=== PATIENT | female | born 1975 | race Two or more races ===

== ENCOUNTER 2016-08-05 15:11 | Inpatient (IN) | payer MEDICAID ==
[~2016-08-05] VITALS: Ht 162.6 cm; Wt 58.5 kg
--- NOTE | 2016-08-05 15:14 | NUR ---
[id number] FROM HOME: ANXIETY, CHEST PAIN, SOB. ONGOING SINCE TUESDAY. PLACED ON MONITOR. VSS. AWAITING MD ORDER
--- NOTE | 2016-08-05 15:15 | NUR ---
PT HAS LFA #16 IV ACCESS.
--- NOTE | 2016-08-05 15:45 | NUR ---
DIRECTOR OF PHYSICAL THERAPY AT BEDSIDE
[2016-08-05] MEDS ORDERED: LORAZEPAM 1 MG TABLET PO ONE (16:00)
--- NOTE | 2016-08-05 16:00 | NUR ---
REPAIR TECH AT BEDSIDE BLOOD SAMPLE COLLECTED
[2016-08-05] MEDS ORDERED: LORAZEPAM 1 MG TABLET ONE (16:01)
[2016-08-05 16:11] LABS: BASOPHILS % (AUTO) 0.3 % (0.0-2.0); EOSINOPHILS # (AUTO) 0.1 /CMM (0.0-0.7); EOSINOPHILS % (AUTO) 0.7 % (0.0-6.0); HEMATOCRIT 34 % (33-45); HEMOGLOBIN 11.3 g/dL (11.5-14.8); LYMPHOCYTES % (AUTO) 24.8 % (20.0-44.0); MEAN CORPUSCULAR HEMOGLOBIN 28 PG (26.0-33.0); MEAN CORPUSCULAR HGB CONC 34 g/dl (31.0-36.0); MEAN CORPUSCULAR VOLUME 84 fL (82-100); MONOCYTES # (AUTO) 0.4 /CMM (0.1-1.30); MONOCYTES % (AUTO) 5.1 % (2.0-12.0); NEUTROPHILS # (AUTO) 5.7 /CMM (1.8-8.9); NEUTROPHILS % (AUTO) 69.1 % (43.0-81.0); PLATELET COUNT (AUTO) 279 /CMM (150-450); RDW COEFFICIENT OF VARIATION 11.7 (11.5-15.0); RED BLOOD CELL COUNT(AUTO) 3.99 MIL/uL (4.0-5.2); WHITE BLOOD COUNT (AUTO) 8.2 K/uL (4.3-11.0)
[2016-08-05 16:22] LABS: CALCIUM, SERUM 8.1 mg/dL (8.5-10.1); CARBON DIOXIDE 23 mmol/L (21-32); CHLORIDE 109 mmol/L (98-107); CREATININE 0.5 mg/dL (0.6-1.3); GLUCOSE 147 mg/dL (74-106); POTASSIUM 3.3 mmol/L (3.5-5.1); SODIUM SERUM 142 mmol/L (136-145); UREA NITROGEN, BLOOD 3 mg/dL (7-18)
[2016-08-05 16:27] LABS: INR 1.12 (0.87-1.13); PROTHROMBIN TIME 11.7 SECS (9.5-12.7)
[2016-08-05] MEDS ORDERED: FUROSEMIDE 20 MG/2 ML VIAL ONE (16:27)
[2016-08-05] MEDS ORDERED: FUROSEMIDE 20 MG/2 ML VIAL IV ONE (16:30)
[2016-08-05 16:31] LABS: TROPONIN I < 0.017 ng/mL (0.00-0.056)
--- NOTE | 2016-08-05 16:38 | NUR ---
CALLED NURSING SUP. FOR TELE BED
--- NOTE | 2016-08-05 17:24 | NUR ---
CALLED FOR FOOD TRAY
--- NOTE | 2016-08-05 17:42 | NUR ---
KOURTNEY PAGED, DR. WIGGINS JEWEL BEARING BROACHER
--- NOTE | 2016-08-05 18:08 | NUR ---
GAVE REPORT TO REMA ZARAGOZA ADMITTING MD DR FELICIANO MARCUS PULMONARY EDEMA. TELEMETRY TRANSFER VIA ACLS PROTOCOL
[2016-08-05] MEDS ORDERED: POTASSIUM CL. PREMIX PERIPHER. 50 ML IV SCH (18:30)
[2016-08-05] MEDS ORDERED: Z GUARD REMEDY 2 OZ OINT TP PRN (18:30)
[2016-08-05] MEDS ORDERED: MAG HYDROX/AL HYDROX/SIMETH 30 ML UDC PO PRN (18:30)
[2016-08-05] MEDS ORDERED: MAGNESIUM HYDROXIDE 30 ML UDC PO PRN (18:30)
[2016-08-05 20:00] VITALS: BP 140/98
[2016-08-05] MEDS ORDERED: POTASSIUM CHLORIDE 20 MEQ TAB.PRT.SR PO ONE (20:00)
--- NOTE | 2016-08-05 21:00 | NUR ---
RN NOTE; PT ON BED WITHOUT ANY DISTRESS , ALERT/ORIENTED , ABLE TO AMBULATE , DENIED ANY CHEST PAIN AT THIS TIME , SKIN ASSESSMENT DONE , BELONGING CHECKED . WILL CONTINUE TO MONITOR .
[2016-08-05] MEDS ORDERED: DEXTROSE 50%-WATER 50 ML DISP.SYRIN IV PRN (23:30)
[2016-08-06] VITALS: BP 143/101
[2016-08-06] MEDS: ZOLPIDEM TARTRATE 5 MG TABLET PO PRN (00:22)
[2016-08-06] MEDS: *INSULIN REGULAR(HUMULIN R)HUM 100 UNIT/ML VIAL SQ PRN ×2 (00:23→21:22)
[2016-08-06] MEDS: BLOOD SUGAR DIAGNOSTIC 1 EACH STRIP VI SCH ×5 (00:24→21:18)
[2016-08-06] MEDS ORDERED: ALBUTEROL FS 2.5 MG/0.5 ML VIAL.NEB NEB PRN (03:00)
[2016-08-06] MEDS ORDERED: IPRATROPIUM NEB FS 0.5 MG/2.5 ML AMPUL.NEB NEB PRN (03:00)
[2016-08-06 04:00] VITALS: BP 124/84
[2016-08-06] MEDS: INSULIN REGULAR, HUMAN 100 UNIT/ML 3 ML VIAL SQ PRN ×2 (06:28→11:31)
[2016-08-06 06:37] LABS: BASOPHILS % (AUTO) 0.3 % (0.0-2.0); EOSINOPHILS # (AUTO) 0.2 /CMM (0.0-0.7); EOSINOPHILS % (AUTO) 2.5 % (0.0-6.0); HEMATOCRIT 33 % (33-45); HEMOGLOBIN 10.9 g/dL (11.5-14.8); LYMPHOCYTES # (AUTO) 2.3 /CMM (0.8-4.8); LYMPHOCYTES % (AUTO) 28.3 % (20.0-44.0); MEAN CORPUSCULAR HEMOGLOBIN 28 PG (26.0-33.0); MEAN CORPUSCULAR HGB CONC 33 g/dl (31.0-36.0); MEAN CORPUSCULAR VOLUME 83 fL (82-100); MONOCYTES # (AUTO) 0.5 /CMM (0.1-1.30); MONOCYTES % (AUTO) 5.6 % (2.0-12.0); NEUTROPHILS # (AUTO) 5.1 /CMM (1.8-8.9); NEUTROPHILS % (AUTO) 63.3 % (43.0-81.0); PLATELET COUNT (AUTO) 266 /CMM (150-450); RDW COEFFICIENT OF VARIATION 12.9 (11.5-15.0); RED BLOOD CELL COUNT(AUTO) 3.92 MIL/uL (4.0-5.2); WHITE BLOOD COUNT (AUTO) 8.1 K/uL (4.3-11.0)
--- NOTE | 2016-08-06 07:00 | NUR ---
RN NOTES RECEIVED PT ON BED, A/Ox3 AZERBAIJANI SPEAKING , RESPIRATION EVEN AND UNLABORED, ON O2 AT 2L N/C, ON TELE ST IN 100'S AT THIS TIME, R FA G 22 SITE CDI, SR UP x3, CALL LIGHT WITHIN EASY REACH , CONTINENT TO MONITOR PT CLOSELY AND NOTIFY MD FOR ANY SIGNIFICANT CHANGES .
[2016-08-06 07:01] LABS: CALCIUM, SERUM 8.5 mg/dL (8.5-10.1); CREATININE 0.7 mg/dL (0.6-1.3); MAGNESIUM 1.7 mg/dL (1.8-2.4); PHOSPHORUS 2.8 mg/dL (2.5-4.9); POTASSIUM 3.6 mmol/L (3.5-5.1)
--- NOTE | 2016-08-06 07:01 | NUR ---
RN EOS NOTE; NO NAY DISTRESS DURING THE SHIFT, PRN AMBIEN 5 MG PO GIVEN FOR INSOMNIA . TOLERATED WELL . ASSISTED NEEDED , ALL NEEDS ATTENDED PROMPTLY. ENDORSED TO NEXT SHIFT RN FOR CONTINUITY OF CARE.
[2016-08-06 08:00] VITALS: BP 143/90
[2016-08-06] MEDS ORDERED: FUROSEMIDE 40 MG/4 ML VIAL IV SCH (09:00)
[2016-08-06] MEDS ORDERED: IV SET PRIMARY PUMP SET 1 EA INFUS.SET MC ONE (11:26)
[2016-08-06] MEDS: Magnesium 1GM/D5W 100ML PREMIX 100 ML IV SCH ×2 (11:30→12:35)
[2016-08-06 12:00] VITALS: BP 124/93
--- NOTE | 2016-08-06 12:00 | NUR ---
RN NOTES PT STABLE , NO DISTRESS NOTED , CONTINUE TO MONITOR .
[2016-08-06] MEDS ORDERED: Magnesium 1GM/D5W 100ML PREMIX 100 ML IV SCH (12:30)
[2016-08-06] MEDS: ASPIRIN 81 MG TAB.CHEW PO SCH (12:35)
[2016-08-06 16:00] VITALS: BP 122/89
[2016-08-06] MEDS: FUROSEMIDE 40 MG/4 ML VIAL IV SCH (16:43)
[2016-08-06] MEDS: ACETAMINOPHEN 325 MG TABLET PO PRN (16:43)
--- NOTE | 2016-08-06 18:48 | NUR ---
RN NOTES PT STABLE , OOB TO BR WITHOUT ASSIST . MEDICATED PER MD ORDER , R FA #22 IV SITE CDI, NO SIGNIFICANT CHANGES NOTED ON THIS SHIFT
--- NOTE | 2016-08-06 19:30 | NUR ---
CHEMICAL TREATMENT PLANT TECHNICIAN INITIAL NOTE RECEIVED REPORT FROM REBECA ZARAGOZA. PT IS A/A/O X4. PT IS SITTING UP AT THE SIDE OF BED. AMBULATORY WITH BRP. ABLE TP VERBALIZE NEEDS. PT IS STATING SOME RIB PAIN, SAYS IT HAPPENS WHEN SHE COUGHS. BED IN LOW LOCKED POSITION. CALL LIGHT WITHIN REACH. WILL CONTINUE TO MONITOR.
[2016-08-06 20:00] VITALS: BP 100/66
[2016-08-06] MEDS: ATORVASTATIN 40 MG TABLET PO SCH (21:17)
[2016-08-06] MEDS: HYDROCODONE/APAP 5/325MG 1 EACH TABLET PO PRN (21:18)
[2016-08-07] VITALS: BP 102/69
[2016-08-07] MEDS: ACETAMINOPHEN 325 MG TABLET PO PRN
[2016-08-07 04:00] VITALS: BP 105/73
[2016-08-07] MEDS: HYDROCODONE/APAP 5/325MG 1 EACH TABLET PO PRN (06:06)
--- NOTE | 2016-08-07 07:30 | NUR ---
FAST FOOD ATTENDANT INITIAL NOTE RECEIVED pt in bed.PT IS A/A/O X4. PT IS SITTING UP AT THE SIDE OF BED. AMBULATORY WITH BRP. ABLE To VERBALIZE NEEDS. no c/o pain. BED IN LOW LOCKED POSITION. CALL LIGHT WITHIN REACH. WILL CONTINUE TO MONITOR.
[2016-08-07] MEDS: BLOOD SUGAR DIAGNOSTIC 1 EACH STRIP VI SCH ×4 (07:52→21:06)
[2016-08-07 08:00] VITALS: BP 132/89
[2016-08-07] MEDS: FUROSEMIDE 40 MG/4 ML VIAL IV SCH ×2 (08:05→17:11)
[2016-08-07] MEDS: ASPIRIN 81 MG TAB.CHEW PO SCH (08:05)
[2016-08-07] MEDS: INSULIN REGULAR, HUMAN 100 UNIT/ML 3 ML VIAL SQ PRN ×2 (08:10→17:16)
[2016-08-07] MEDS: ONDANSETRON HCL/PF 4 MG/2 ML VIAL IVP PRN (08:49)
[2016-08-07] MEDS: METOCLOPRAMIDE HCL 10 MG/2 ML VIAL IV PRN ×2 (11:39→21:01)
[2016-08-07 12:00] VITALS: BP_SYST 119; BP_SYST 90; BP_DIAS 43; BP_DIAS 80
[2016-08-07 12:26] LABS: CREATININE 0.6 mg/dL (0.6-1.3)
[2016-08-07] MEDS ORDERED: IV SET PRIMARY PUMP SET 1 EA INFUS.SET MC ONE (14:34)
[2016-08-07] MEDS: HEPARIN INFUSION/D5W 500 ML IV PRN (14:42)
[2016-08-07] MEDS: FAMOTIDINE (20 MG) 20 MG TABLET PO SCH ×2 (14:49→21:06)
[2016-08-07 16:00] VITALS: BP 109/71
--- NOTE | 2016-08-07 19:30 | NUR ---
RN NOTES RECEIVED PT AWAKE ON BED,A/0X4, AMBULATORY, SR ON TELE MONITOR , HR 85, HEPARIN RUNNING @20ML/HR, DENIES PAIN , NO SOB, CONTINUE TO MONITOR
[2016-08-07 20:00] VITALS: BP 111/79
[2016-08-07] MEDS: ATORVASTATIN 40 MG TABLET PO SCH (21:06)
[2016-08-07] MEDS: *INSULIN REGULAR(HUMULIN R)HUM 100 UNIT/ML VIAL SQ PRN (21:15)
--- NOTE | 2016-08-07 21:19 | NUR ---
RN NOTES COMPLAINED OF FEELING NAUSEOUS- REGLAN 5MG IV GIVEN ORDERED, V/S STABLE
[2016-08-07] MEDS ORDERED: HEPARIN SODIUM, PORCINE 5000 UNITS/1 ML VIAL ONE (22:35)
--- NOTE | 2016-08-07 22:35 | NUR ---
RN NOTES PT. PTT-32 HEPARIN 3600 WAS GIVEN AND INCREASED THE RATE TO 1200 PER HEPARIN PROTOCOL, WITNESSED BY TH CHARGE NURSE
[2016-08-07] MEDS: ZOLPIDEM TARTRATE 5 MG TABLET PO PRN ×2 (22:46)
[2016-08-07] MEDS ORDERED: HEPARIN SODIUM, PORCINE 5000 UNITS/1 ML VIAL IV ONE (23:00)
[2016-08-08] VITALS: BP 92/58
[2016-08-08 04:00] VITALS: BP 112/82
[2016-08-08 04:47] LABS: CREATININE 0.6 mg/dL (0.6-1.3); POTASSIUM 3.3 mmol/L (3.5-5.1)
[2016-08-08 04:58] LABS: INR 1.07 (0.87-1.13); PROTHROMBIN TIME 11.5 SECS (9.5-12.7)
--- NOTE | 2016-08-08 05:10 | NUR ---
RN NOTES PTT-46- NO CHANGE PER HEPARIN PROTOCOL
--- NOTE | 2016-08-08 06:29 | NUR ---
RN NOTES AWAKE, DENIES PAIN, NO SOB, MORNING CARE RENDERED, PT. NEEDS ATTENDED. ENDORSED TO DAYSHIFT NURSE FOR CONTINUITY OF CARE
--- NOTE | 2016-08-08 07:05 | NUR ---
MACHINE FEEDER INITIAL NOTE REPORT RECEIVED AT THE BEDSIDE. PATIENT IS RESTING COMFORTABLY IN BED. NO SOB OR DISTRESS NOTED AT THIS TIME. PATIENT DENIES PAIN. HEART RATE SR IN THE 80'S. HEPARIN DRIP SETTINGS CHECKED. BED IN A LOW POSITION, CALL LIGHT WITHIN PATIENT REACH. WILL CONTINUE TO MONITOR.
[2016-08-08 08:00] VITALS: BP 127/88
[2016-08-08] MEDS: FAMOTIDINE (20 MG) 20 MG TABLET PO SCH ×2 (08:20→21:53)
[2016-08-08] MEDS: ASPIRIN 81 MG TAB.CHEW PO SCH (08:20)
[2016-08-08] MEDS: FUROSEMIDE 40 MG/4 ML VIAL IV SCH (08:20)
[2016-08-08] MEDS: BLOOD SUGAR DIAGNOSTIC 1 EACH STRIP VI SCH ×4 (08:20→21:53)
[2016-08-08] MEDS: POTASSIUM CHLORIDE 20 MEQ POWDER PACKET GT SCH (10:23)
[2016-08-08] MEDS: INSULIN REGULAR, HUMAN 100 UNIT/ML 3 ML VIAL SQ PRN ×2 (12:08→17:23)
[2016-08-08] MEDS: HEPARIN INFUSION/D5W 500 ML IV PRN (12:08)
[2016-08-08] MEDS: HYDROCODONE/APAP 5/325MG 1 EACH TABLET PO PRN (13:51)
[2016-08-08] MEDS: ONDANSETRON HCL/PF 4 MG/2 ML VIAL IVP PRN (14:58)
[2016-08-08] MEDS: METOCLOPRAMIDE HCL 10 MG/2 ML VIAL IV PRN (15:21)
[2016-08-08 16:00] VITALS: BP 111/78
[2016-08-08] MEDS: FUROSEMIDE 40 MG TABLET PO SCH (17:22)
--- NOTE | 2016-08-08 18:49 | NUR ---
ICING AND GLAZE MAKER CLOSING NOTE NO SIGNIFICANT CHANGES IN PATIENT CONDITION THROUGHOUT THE SHIFT. NO SOB OR DISTRESS NOTED AT THIS TIME. PATIENT DENIES PAIN. HEART RATE IS SR AT 80. BED IN A LOW POSITION, CALL LIGHT WITHIN PATIENT REACH, WILL ENDORSE FOR KEILY.
--- NOTE | 2016-08-08 19:15 | NUR ---
RN NOTES RECEIVED PT AWAKE, SITTING IN BED, NOM SOB, NOT IN DISTRESS, ON ROOM AIR AND TOLERATED WELL. PT ALERT AND ORIENTED X4, PT VERBALIZING SLIGHT DIZZINESS AND FEELS NAUSEATED, ICE CHIPS OFFERED AND TOLERATED WELL. TELE MONITOR READS SINUS RHYTHM AT 89. IV ACCESS ON LEFT AC PATENT AND INTACT WITH ONGOING HEPARIN WITH SETTINGS IN PLACED. KEPT PT COMFORTABLE AND ATTENDED WITH CALL LIGHT WITH IN REACH. WILL CONTINUE TO MONITOR PT.
[2016-08-08 20:00] VITALS: BP 102/72
[2016-08-08] MEDS: ATORVASTATIN 40 MG TABLET PO SCH (21:53)
[2016-08-08] MEDS: *INSULIN REGULAR(HUMULIN R)HUM 100 UNIT/ML VIAL SQ PRN (21:55)
[2016-08-08] MEDS: ZOLPIDEM TARTRATE 5 MG TABLET PO PRN (23:06)
--- NOTE | 2016-08-08 23:06 | NUR ---
RN NOTES PT VERBALIZING DIFFICULTY IN SLEEPING AND REQUESTING FOR SLEEPING PILL. AMBIEN 5 MG TAB GIVEN PO. WILL CONTINUE TO MONITOR PT.
[2016-08-09] VITALS: BP 103/70
[2016-08-09 04:00] VITALS: BP 105/73
[2016-08-09] MEDS: BLOOD SUGAR DIAGNOSTIC 1 EACH STRIP VI SCH ×4 (06:55→22:04)
[2016-08-09] MEDS: INSULIN REGULAR, HUMAN 100 UNIT/ML 3 ML VIAL SQ PRN (06:57)
[2016-08-09 07:11] LABS: CREATININE 0.7 mg/dL (0.6-1.3); MAGNESIUM 1.9 mg/dL (1.8-2.4); PROTHROMBIN TIME 10.7 SECS (9.5-12.7)
--- NOTE | 2016-08-09 07:15 | NUR ---
RN INITIAL NOTE PT RECEIVED SITTING IN CHAIR. AWAKE, ALERT AND ORIENTED. ABLE TO MAKE NEEDS KNOWN. DENIES PAIN AT THIS TIME. RESPIRATIONS ARE EVEN AND UNLABORED. NO S/S OF RESPIRATORY DISTRESS OR SOB. ABLE TO AMBULATE. SINUS RHYTHM ON TELE MONITOR. LEFT FOREARM FLUSHED, PATENT. DRESSING C/D/I. SKIN IS WARM AND DRY TO TOUCH. SAFETY PRECAUTIONS IN PLACE. CALL LIGHT WITHIN EASY REACH. WILL CONTINUE TO MONITOR.
--- NOTE | 2016-08-09 07:23 | NUR ---
RN NOTES PT AWAKE, DENIES ANY PAIN AND DISCOMFORT AT THIS TIME. VITAL SIGNS STABLE, AFEBRILE. NO COMPLAIN OF PAIN. NO EPISODE OF NAUSEA AND VOMITING. NO SIGNS OF HYPOGLYCEMIA NOTED. ALL DUE MEDS GIVEN. ALL NEEDS MET. ENDORSED TO MORNING RN FOR CONTINUITY OF CARE.
[2016-08-09 08:00] VITALS: BP 151/83
[2016-08-09] MEDS ORDERED: HEPARIN SODIUM, PORCINE 5000 UNITS/1 ML VIAL IV ONE (08:00)
[2016-08-09] MEDS: FUROSEMIDE 40 MG TABLET PO SCH ×2 (08:07→18:17)
[2016-08-09] MEDS: POTASSIUM CHLORIDE 20 MEQ POWDER PACKET GT SCH (08:07)
[2016-08-09] MEDS: FAMOTIDINE (20 MG) 20 MG TABLET PO SCH ×2 (08:07→21:57)
[2016-08-09] MEDS: ASPIRIN 81 MG TAB.CHEW PO SCH (08:07)
[2016-08-09] MEDS: HEPARIN INFUSION/D5W 500 ML IV PRN (08:32)
[2016-08-09] MEDS: CARVEDILOL 3.125 MG TABLET PO SCH ×2 (09:31→21:00)
[2016-08-09] MEDS: *INSULIN REGULAR(HUMULIN R)HUM 100 UNIT/ML VIAL SQ PRN ×2 (11:12→18:18)
[2016-08-09 12:00] VITALS: BP 115/87
[2016-08-09] MEDS: HYDROCODONE/APAP 5/325MG 1 EACH TABLET PO PRN (14:35)
[2016-08-09 16:00] VITALS: BP 92/65
--- NOTE | 2016-08-09 16:50 | NUR ---
RN NOTE PT HAD SYNCOPAL EPISODE. WAS ABLE TO MOVE HER TO FLOOR WITHOUT INCIDENT. MAXIMILIAN WOOTEN, PROVIDER CONTACTED. EKG AND TROPONIN ORDERED. BLOOD GLUCOSE AND VITALS ASSESSED, WNL.
[2016-08-09] MEDS: ONDANSETRON HCL/PF 4 MG/2 ML VIAL IVP PRN (17:07)
--- NOTE | 2016-08-09 19:10 | NUR ---
RN CLOSING NOTE ALL MD ORDERS CARRIED OUT. PATIENT KEPT CLEAN AND DRY. SAFETY PRECAUTIONS IN PLACE AT ALL TIMES. REPORT WILL BE GIVEN TO PM RN FOR KEILY.,
--- NOTE | 2016-08-09 19:25 | NUR ---
RN OPEN NOTES RECEIVED PATIENT SITTING IN CHAIR. A/O X4. NO SIGNS OF DISTRESS OR DISCOMFORT. BREATHING EVEN AND UNLABORED. ON TELE MONITORING WITH SR NOTED. IV ACCESS IN LFA PATENT AND INTACT, NO SIGNS OF REDNESS OR INFILTRATION. BED IN LOW LOCKED POSITION WITH SIDE RAILS X3. CALL LIGHT WITHIN REACH. WILL CONTINUE TO MONITOR.
[2016-08-09] MEDS: ACETAMINOPHEN 325 MG TABLET PO PRN (19:51)
--- NOTE | 2016-08-09 19:51 | NUR ---
RN NOTES PATIENT COMPLAIN OF HEADACHE 08/21. ADMINISTERED TYLENOL 650MG PER PATIENT REQUEST. WILL CONTINUE TO MONITOR.
[2016-08-09 20:00] VITALS: BP 98/65
[2016-08-09] MEDS: ATORVASTATIN 40 MG TABLET PO SCH (21:57)
--- NOTE | 2016-08-09 22:00 | NUR ---
RN NOTES DID NOT ADMINISTER SLIDING SCALE INSULIN FOR BS 198, PATIENT NPO AFTER MIDNIGHT FOR PROCEDURE AND SHE STATES SHE DOES NOT WANT ANYTHING TO EAT FOR THE NIGHT. WILL CONTINUE TO MONITOR.
[2016-08-09] MEDS: ZOLPIDEM TARTRATE 5 MG TABLET PO PRN (22:01)
--- NOTE | 2016-08-09 22:01 | NUR ---
RN NOTES ADMINISTERED AMBIEN 5MG PO ORDERED FOR INSOMNIA AT PATIENT REQUEST. WILL CONTINUE TO MONITOR.
[2016-08-09] MEDS: HEPARIN SODIUM, PORCINE 5000 UNITS/1 ML VIAL SQ SCH (22:29)
--- NOTE | 2016-08-09 22:33 | NUR ---
RN NOTES SPOKE WITH ANEESH STEVENSON INFORMED HER PATIENT IS SCHEDULED TO HAVE CARDIAC CATH AT [facility] TOMORROW, PER ANEESH RODGERS TO ADMINISTER ORDERED HEPARIN DOSE. WILL CONTINUE TO MONITOR.
[2016-08-10] VITALS (9 sets, daily range): BP systolic 90–108; BP diastolic 40–82
[2016-08-10 06:31] LABS: BASOPHILS % (AUTO) 0.3 % (0.0-2.0); EOSINOPHILS # (AUTO) 0.2 /CMM (0.0-0.7); EOSINOPHILS % (AUTO) 3.6 % (0.0-6.0); HEMATOCRIT 37 % (33-45); LYMPHOCYTES # (AUTO) 2.2 /CMM (0.8-4.8); LYMPHOCYTES % (AUTO) 35.5 % (20.0-44.0); MEAN CORPUSCULAR HEMOGLOBIN 27 PG (26.0-33.0); MEAN CORPUSCULAR HGB CONC 33 g/dl (31.0-36.0); MEAN CORPUSCULAR VOLUME 83 fL (82-100); MONOCYTES # (AUTO) 0.4 /CMM (0.1-1.30); MONOCYTES % (AUTO) 7.2 % (2.0-12.0); NEUTROPHILS # (AUTO) 3.3 /CMM (1.8-8.9); NEUTROPHILS % (AUTO) 53.4 % (43.0-81.0); PLATELET COUNT (AUTO) 278 /CMM (150-450); RDW COEFFICIENT OF VARIATION 12.9 (11.5-15.0); RED BLOOD CELL COUNT(AUTO) 4.43 MIL/uL (4.0-5.2); WHITE BLOOD COUNT (AUTO) 6.1 K/uL (4.3-11.0)
[2016-08-10] MEDS: BLOOD SUGAR DIAGNOSTIC 1 EACH STRIP VI SCH ×4 (06:41→21:32)
[2016-08-10 06:42] LABS: INR 1.01 (0.87-1.13); PROTHROMBIN TIME 10.8 SECS (9.5-12.7)
--- NOTE | 2016-08-10 06:47 | NUR ---
RN CLOSING NOTES PATIENT RESTING IN BED, EASILY AROUSABLE TO NAME. A/O X4. NO SIGNS OF DISTRESS OR DISCOMFORT. BREATHING EVEN AND UNLABORED. ON TELE MONITORING WITH SR NOTED. IV ACCESS IN LFA PATENT AND INTACT, NO SIGNS OF REDNESS OR INFILTRATION. ALL NEEDS MET. NO SIGNIFICANT CHANGES THROUGH THE NIGHT. BED IN LOW LOCKED POSITION WITH SIDE RAILS X3. CALL LIGHT WITHIN REACH. WILL ENDORSE TO AM SHIFT FOR KEIYL.
[2016-08-10 06:55] LABS: ALBUMIN 3.5 g/dL (3.4-5.0); BILIRUBIN,TOTAL 0.7 mg/dL (0.2-1.0); CALCIUM, SERUM 9.1 mg/dL (8.5-10.1); CREATININE 0.8 mg/dL (0.6-1.3); POTASSIUM 4.4 mmol/L (3.5-5.1); TOTAL PROTEIN, SERUM 7.8 g/dL (6.4-8.2)
[2016-08-10] MEDS: POTASSIUM CHLORIDE 20 MEQ POWDER PACKET GT SCH (12:44)
[2016-08-10] MEDS: CARVEDILOL 3.125 MG TABLET PO SCH ×2 (12:44→21:32)
[2016-08-10] MEDS: FAMOTIDINE (20 MG) 20 MG TABLET PO SCH ×2 (12:44→21:32)
[2016-08-10] MEDS: ASPIRIN 81 MG TAB.CHEW PO SCH (12:44)
[2016-08-10] MEDS: FUROSEMIDE 40 MG TABLET PO SCH ×2 (12:44→17:27)
[2016-08-10] MEDS: HEPARIN SODIUM, PORCINE 5000 UNITS/1 ML VIAL SQ SCH ×2 (12:48→21:41)
[2016-08-10] MEDS: INSULIN REGULAR, HUMAN 100 UNIT/ML 3 ML VIAL SQ PRN (12:58)
[2016-08-10] MEDS ORDERED: BISACODYL SUPP (10 MG) 10 MG/SUPP.RECT SUPP.RECT RC PRN (15:00)
--- NOTE | 2016-08-10 19:21 | NUR ---
Handoff report. Shift summary pt pending county for cardiac cath as insurance not covering [facility]. Patient has request for sandwich and occasional items like prn meds for bm or prune juice and once water. Provider rounds and patient continues on care for chf.
[2016-08-10] MEDS: ATORVASTATIN 40 MG TABLET PO SCH (21:32)
[2016-08-10] MEDS: *INSULIN REGULAR(HUMULIN R)HUM 100 UNIT/ML VIAL SQ PRN (21:41)
[2016-08-10] MEDS: ZOLPIDEM TARTRATE 5 MG TABLET PO PRN (22:01)
[2016-08-11] VITALS: BP 91/65
[2016-08-11 06:00] VITALS: BP 107/75
[2016-08-11] MEDS: FUROSEMIDE 40 MG TABLET PO SCH ×2 (07:38→08:27)
[2016-08-11 08:00] VITALS: BP 90/63
--- NOTE | 2016-08-11 08:00 | NUR ---
agriculture specialist received pt in bed awake alert x4, sr on tele sbp 90 low will hold bp meds as Lasix will be given as ordered, abd soft active bowl sounds, iv access patent, pt is ambulatory, denies any pain or discomfort at this time, lung sounds clear on RA sat 95% no respiratory distress noted call light w/ in reach bed low position side rails x2 up, fall precautions taken will continue to monitor.
[2016-08-11] MEDS: ASPIRIN 81 MG TAB.CHEW PO SCH (08:27)
[2016-08-11] MEDS: BLOOD SUGAR DIAGNOSTIC 1 EACH STRIP VI SCH ×4 (08:27→21:28)
[2016-08-11] MEDS: FAMOTIDINE (20 MG) 20 MG TABLET PO SCH ×2 (08:27→21:27)
[2016-08-11] MEDS: POTASSIUM CHLORIDE 20 MEQ POWDER PACKET PO SCH (08:27)
[2016-08-11] MEDS: LISINOPRIL (5MG) 5 MG TABLET PO SCH (08:28)
[2016-08-11] MEDS: CARVEDILOL 3.125 MG TABLET PO SCH ×2 (08:28→21:00)
[2016-08-11] MEDS: HEPARIN SODIUM, PORCINE 5000 UNITS/1 ML VIAL SQ SCH ×2 (08:30→21:27)
[2016-08-11] MEDS: INSULIN REGULAR, HUMAN 100 UNIT/ML 3 ML VIAL SQ PRN ×3 (08:31→17:19)
[2016-08-11 12:00] VITALS: BP 109/79
[2016-08-11] MEDS: HYDROCODONE/APAP 5/325MG 1 EACH TABLET PO PRN (12:08)
[2016-08-11] MEDS ORDERED: ANASTROZOLE 1 MG TABLET PO SCH (13:00)
[2016-08-11 16:00] VITALS: BP 101/71
[2016-08-11] MEDS: ACETAMINOPHEN 325 MG TABLET PO PRN (17:15)
--- NOTE | 2016-08-11 19:30 | NUR ---
RN INITIAL NOTE RECEIVED REPORT FROM [place] ZARAGOZA. PT IN BED, A/A/O X4. LUNG SOUNDS CLEAR. BOWEL SOUNDS PRESENT. IV PATENT AND INTACT. PT WANTS TO TAKE A SHOWER. WILL COVER IV SITE. PT IS AMBULATORY. BED IN LOW LOCKED POSITION. CALL LIGHT WITHIN REACH. WILL CONTINUE TO MONITOR.
[2016-08-11 20:00] VITALS: BP 106/77
[2016-08-11] MEDS: ATORVASTATIN 40 MG TABLET PO SCH (21:26)
[2016-08-11] MEDS: *INSULIN REGULAR(HUMULIN R)HUM 100 UNIT/ML VIAL SQ PRN (21:35)
[2016-08-11] MEDS: ZOLPIDEM TARTRATE 5 MG TABLET PO PRN (22:24)
--- NOTE | 2016-08-12 07:21 | NUR ---
R.N Initial Notes received pt in bed .no s/s of distress ,no c/o pain ,no s/s of distress.A/O x4 able to verbalize needs.i.v site on Left forearm cdi and patent.safety measures in place.bed in low and locked position.
[2016-08-12] MEDS: BLOOD SUGAR DIAGNOSTIC 1 EACH STRIP VI SCH ×3 (07:30→16:44)
[2016-08-12 08:00] VITALS: BP 117/81
[2016-08-12] MEDS: FAMOTIDINE (20 MG) 20 MG TABLET PO SCH (08:46)
[2016-08-12] MEDS: POTASSIUM CHLORIDE 20 MEQ POWDER PACKET PO SCH (08:46)
[2016-08-12] MEDS: FUROSEMIDE 40 MG TABLET PO SCH (08:46)
[2016-08-12 08:47] VITALS: BP 117/81
[2016-08-12] MEDS: CARVEDILOL 3.125 MG TABLET PO SCH (08:47)
[2016-08-12] MEDS: LISINOPRIL (5MG) 5 MG TABLET PO SCH (08:47)
[2016-08-12] MEDS: ASPIRIN 81 MG TAB.CHEW PO SCH (08:47)
[2016-08-12] MEDS: HEPARIN SODIUM, PORCINE 5000 UNITS/1 ML VIAL SQ SCH (08:48)
[2016-08-12] MEDS: *INSULIN REGULAR(HUMULIN R)HUM 100 UNIT/ML VIAL SQ PRN (11:46)
[2016-08-12] MEDS ORDERED: ATOR40TA PO (15:11)
[2016-08-12] MEDS ORDERED: ASPI81TA2 PO (15:11)
[2016-08-12] MEDS ORDERED: FURO40TA5 PO (15:11)
[2016-08-12] MEDS ORDERED: CARV3.122 PO (15:11)
[2016-08-12] MEDS ORDERED: LISI5TAB45 PO (15:11)
[2016-08-12] MEDS: METOCLOPRAMIDE HCL 10 MG/2 ML VIAL IV PRN (16:04)
--- NOTE | 2016-08-12 18:55 | NUR ---
PT D/C HOME WITH FAMILY WITH BELONGINGS.ALL M.D ORDERS NOTES.PT IN STABLE CONDITION.
== END 2016-08-12 19:30 | disposition home or self-care (01) | DRG 194 ==
LOC: ER 15:13 → TELE1 18:16 → MEDSG1 08-11 16:46
PROVIDERS: ADMIT Family Medicine; ATTEND Family Medicine
DX: I11.0 Hypertensive heart disease with heart failure (principal); J90 Pleural effusion, not elsewhere classified; I31.3 Pericardial effusion (noninflammatory); I42.9 Cardiomyopathy, unspecified; I50.23 Acute on chronic systolic (congestive) heart failure; E87.6 Hypokalemia; E11.65 Type 2 diabetes mellitus with hyperglycemia; I50.1 Left ventricular failure, unspecified
CPT/HCPCS: 36415; 71010-TC; 80048-TC; 80051-TC; 80053-TC; 80061-TC; 82565-TC; 82962-TC; 83735-TC; 83880; 84100-TC; 84484-TC; 84520-TC; 85025-TC; 85610-TC; 85730-TC; 87081-TC; 93307-TC; 94799-TC; A4606; J1644; J1815; J1940; J2405; J2765; J3475; Z7610

== ENCOUNTER 2017-09-26 20:57 | Emergency (ER) | payer MEDICAID ==
[~2017-09-26] VITALS: Ht 157.5 cm; Wt 65.8 kg
[~2017-09-26 20:57] MED LIST: ASPI-1169 PO; ATOR40TA PO; CARV3.122 PO; FURO40TA5 PO; LISI5TAB45 PO
[2017-09-26 21:36] VITALS: BP 131/68
== END 2017-09-26 21:39 | disposition home or self-care (01) ==
LOC: ER 20:58
DX: Z76.0 Encounter for issue of repeat prescription (principal); E11.9 Type 2 diabetes mellitus without complications; Z79.82 Long term (current) use of aspirin
CPT/HCPCS: 99283; A4606; Z7610